=== PATIENT | female | born 1950 | race Caucasian/White ===

== ENCOUNTER 2017-07-21 21:43 | Emergency (ER) | payer SELFPAY ==
--- NOTE | 2017-07-21 21:53 | C.PDOC ---
History Of Present Illness Patient presents to the ER after she had a new milkshake at approximately 19:00- 20:00 and developed a runny nose, diffuse itching and swelling to eyelids, and a rash. Patient was initially SOB which prompted ER visit, currently speaking in complete sentences. Denies chest pain or vomiting. Time Seen by Provider: 07/21/17 21:53 Chief Complaint (Nursing): Allergic Reaction History Per: Patient History/Exam Limitations: no limitations Onset/Duration Of Symptoms: Hrs Current Symptoms Are (Timing): Still Present Context: Food Possible Cause: Food Associated Symptoms: Skin Rash, Swelling, Itching Home/EMS Treatment: None Severity: Mild Pain Scale Rating Of: 4 Recent travel outside of the [place]: No Past Medical History Reviewed: Historical Data, Nursing Documentation, Vital Signs Vital Signs: Last Vital Signs Temp 97.4 F L 07/22/17 01:59 Pulse 92 H 07/22/17 02:23 Resp 18 07/22/17 02:23 BP 137/55 L 07/22/17 02:23 Pulse Ox 95 07/22/17 02:23 - Medical History PMH: HTN Surgical History: No Surg Hx Family History: States: No Known Family Hx - Social History Hx Tobacco Use: No Hx Alcohol Use: No Hx Substance Use: No - Immunization History Hx Tetanus Toxoid Vaccination: No Hx Influenza Vaccination: Yes (08/13/14) Hx Pneumococcal Vaccination: Yes (08/13/15) Review Of Systems Cardiovascular: Negative for: Chest Pain Gastrointestinal: Negative for: Vomiting Skin: Positive for: Rash, Other (Swelling and itchiness to eyelids) Physical Exam - Physical Exam Appears: Non-toxic, No Acute Distress Skin: Warm, Dry, Rash (Mild diffuse urticarial) Head: Normacephalic Eye(s): bilateral: Normal Inspection, PERRL, EOMI, Other (Edematous eyelids, erythematous conjunctiva) Oral Mucosa: Moist Throat: Normal, No Erythema, No Other (Swelling) Chest: Symmetrical Cardiovascular: Rhythm Regular Respiratory: No Rales, No Rhonchi, No Wheezing Gastrointestinal/Abdominal: Soft, No Tenderness Neurological/Psych: Oriented x3 ED Course And Treatment O2 Sat by Pulse Oximetry: 95 Pulse Ox Interpretation: Normal Progress Note: IV fluids, benadryl, pepcid, and solumedrol administered. Reevaluation Time: 02:53 Reassessment Condition: Improved Critical Care Time - Critical Care Note Total Time (in mins): 30 Documented critical care: time excludes all time spent performing seperately billable procedures. Medical Decision Making Medical Decision Making: Upon provider reevaluation patient is feeling better, is medically stable, and requires no further treatment in the ED at this time. Patient will be discharged home with Rx for prednisone . Counseling was provided and all questions were answered regarding diagnosis and need for follow up with dr moody. There is agreement to discharge plan. Return if symptoms persist or worsen. Disposition Counseled Patient/Family Regarding: Studies Performed, Diagnosis, Need For Followup, Rx Given - Disposition Referrals: Pia Moody APN [Advanced Practice Nurse] - Disposition: HOME/ ROUTINE Disposition Time: 21:53 Condition: FAIR Additional Instructions: Please return if symptoms recur. also use benadryl, pepcid and claritin Prescriptions: Epinephrine [Epipen Jr 2-Ermisa] 0.15 mg IM ONCE PRN #1 auto.injct PRN Reason: Anaphylaxis predniSONE [predniSONE Tab] 20 mg PO DAILY #5 tab Instructions: General Allergic Reaction (ED), Urticaria (GEN) Forms: [employer] (Bhutanese) Print Language: PASHTO - Clinical Impression Clinical Impression: Allergic urticaria, Allergic reaction - Scribe Statement The provider has reviewed the documentation as recorded by the Scribe Jarrett Khoury All medical record entries made by the Scribe were at my direction and personally dictated by me. I have reviewed the chart and agree that the record accurately reflects my personal performance of the history, physical exam, medical decision making, and the department course for this patient. I have also personally directed, reviewed, and agree with the discharge instructions and disposition. Decision To Admit - . Patient Diagnosis: Allergic reaction
[2017-07-21] MEDS ORDERED: Lactated Ringer's 1,000 ML IV ONE (21:55)
[2017-07-21] MEDS ORDERED: DiphenhydrAMINE 50 mg/ml Inj IVP STA (21:55)
[2017-07-21] MEDS ORDERED: DiphenhydrAMINE 50 mg/ml Inj ONE (22:01)
[2017-07-22 02:02] VITALS: PULSE 92; TEMP 97.4
[2017-07-22 02:24] VITALS: BP 137/55; RESP 18; O2SAT 95
== END 2017-07-22 04:42 | disposition home or self-care (01) ==
LOC: C.ER 21:43
DX: L50.0 Allergic urticaria (principal)
CPT/HCPCS: 96374; 96375; 99285; J1200; J2930; J7120

== ENCOUNTER 2017-10-25 08:41 | Emergency (ER) | payer MEDICARE, OTHER ==
[2017-10-25 08:46] VITALS: RESP 20
--- NOTE | 2017-10-25 09:25 | C.PDOC ---
History Of Present Illness 67 year old female presents to the ED for evaluation of left buttock pain which began 8 days ago. Patient reports increased pain and redness. Denies fever, chills, discharge. Denies prior history of the same. L BUTTOCK PAIN X 8 DAYS. INCR PAIN, REDNESS. NO FEVER, DC, CHILLS. DENIES PRIOR HO SAME. EXAM MOD DIST NONTOXIC SKIN +ABSCESS UPPER L BUTTOCK ABSCESS W LOCAL TEND, NO DC. NO GROSS PERIRECTAL ABN. REMAINDER NEG Time Seen by Provider: 10/25/17 09:12 Chief Complaint (Nursing): Back Pain History Per: Patient History/Exam Limitations: no limitations Onset/Duration Of Symptoms: Days (8) Current Symptoms Are (Timing): Still Present Location Of Injury: Left: Buttock Quality Of Symptoms: Painful, Other (redness ) Additional History Per: Patient Past Medical History Reviewed: Historical Data, Nursing Documentation, Vital Signs Vital Signs: Last Vital Signs Temp 98.7 F 10/25/17 08:44 Pulse 73 10/25/17 08:44 Resp 20 10/25/17 08:44 BP 182/83 H 10/25/17 08:44 Pulse Ox 99 10/25/17 14:33 - Medical History PMH: HTN Denies: Anemia, Chronic Kidney Disease Surgical History: No Surg Hx Family History: States: Unknown Family Hx - Social History Hx Tobacco Use: No Hx Alcohol Use: No Hx Substance Use: No - Immunization History Hx Tetanus Toxoid Vaccination: No Hx Influenza Vaccination: Yes (08/13/14) Hx Pneumococcal Vaccination: Yes (08/13/15) Review Of Systems Constitutional: Negative for: Fever, Chills Skin: Positive for: Other (left buttock pain, with redness. no discharge ) Physical Exam - Physical Exam Appears: Non-toxic, Other (in moderate distress ) Skin: Other (abscess noted to upper left buttock with localized tenderness. No discharge. No gross perirectal abnormality) Head: Normacephalic Eye(s): bilateral: Normal Inspection Oral Mucosa: Moist Neck: Supple Chest: Symmetrical, No Deformity, No Tenderness Cardiovascular: Rhythm Regular, No Murmur Respiratory: Normal Breath Sounds, No Rales, No Rhonchi, No Wheezing Gastrointestinal/Abdominal: Soft, No Tenderness, No Guarding, No Rebound Extremity: Normal ROM, Capillary Refill (less than 2 seconds ) Neurological/Psych: Normal Speech, Normal Cognition ED Course And Treatment - Laboratory Results Result Diagrams: 10/25/17 10:00 10/25/17 10:00 O2 Sat by Pulse Oximetry: 99 (on RA) Pulse Ox Interpretation: Normal Progress Note: Bloodwork and CT A/P ordered and reviewed. Morphine IVP, Toradol IVP, and Zofran IVP administered. - Incision & Drainage Of Abscess Anesthesia: Lidocaine 1%, With Epi Prep Used: Betadine Procedure: Incised W/Scalpel Blade#: (11), Drained Pus, Irrigated Cavity W/ Saline, Probed To Break Up Loculations, Packed W/Gauze Progress - Re-Evaluation Re-evaluation Note: 10/25/17 12:12 D/W DR WILDE SURG RESIDENT WILL EVAL IN ER 10/25/17 14:00 PER SURG RESIDENT, NO NEED FOR I&D. WARM COMPRESSES ONLY. 10/25/17 14:[address] JIMENEZ OR SURG RESIDENTS S/P MULT CALLS SINCE 1400 - Data Reviewed Data Reviewed: Lab, Diagnostic imaging Disposition Counseled Patient/Family Regarding: Studies Performed, Diagnosis, Need For Followup, Rx Given - Disposition Referrals: [facility] [Provider Group] Disposition: HOME/ ROUTINE Disposition Time: 15:01 Condition: IMPROVED Additional Instructions: REGRESAR EN 2 MARQUEZ PARA EL CAMBIO DE EMBALAJE, EVALUACIN DE HERIDAS. Instructions: Skin Abscess Forms: [employer] (Libyan) Print Language: BENGALI - Clinical Impression Clinical Impression: Abscess - Scribe Statement The provider has reviewed the documentation as recorded by the Scribe (Antonella Casillas) Provider Attestation: All medical record entries made by the Scribe were at my direction and personally dictated by me. I have reviewed the chart and agree that the record accurately reflects my personal performance of the history, physical exam, medical decision making, and the department course for this patient. I have also personally directed, reviewed, and agree with the discharge instructions and disposition.
[2017-10-25 10:14] LABS: BASO # 0.1 K/uL (0.0-0.2); BASO % 0.6 % (0.0-2.0); EOS # 0.2 K/uL (0.0-0.7); EOS % 2.7 % (0.0-4.0); HEMOGLOBIN 11.2 g/dL (11.0-16.0); LYMPH # 2.3 K/uL (1.0-4.3); LYMPH % 27.8 % (20.0-40.0); MEAN CELL VOLUME 79.9 fL (81.0-99.0); MEAN CORPUSCULAR HEMOGLOBIN 26.7 pg (27.0-31.0); MEAN CORPUSCULAR HGB CONC 33.4 g/dL (33.0-37.0); MEAN PLATELET VOLUME 7.3 fL (7.2-11.7); MONO # 0.5 K/uL (0.0-0.8); MONO % 6.6 % (0.0-10.0); NEUT # 5.2 K/uL (1.8-7.0); NEUT % 62.3 % (50.0-75.0); RBC 4.21 Mil/uL (3.80-5.20); RED CELL DISTRIBUTION WIDTH 16.2 % (11.5-14.5); WHITE BLOOD COUNT 8.3 K/uL (4.8-10.8)
[2017-10-25 10:23] LABS: BLOOD UREA NITROGEN 18 mg/dL (7-17); CALCIUM 9.2 mg/dl (8.6-10.4); GFR AFRICAN-AMERICAN > 60; GFR NON-AFRICAN AMERICAN > 60
[2017-10-25] MEDS ORDERED: Iodixanol 320 MG/ML 100 ML BOTTLE IV ONE (10:47)
--- NOTE | 2017-10-25 11:31 | CT ---
CT pelvis History: Left buttock redness. Swelling. Comparison: None available. Technique: Multiple contiguous axial images were performed through the pelvis with the use of intravenous contrast. Subsequently, sagittal and coronal reformatted images were obtained. Findings: Subcutaneous calcifications noted within the bilateral gluteal regions suggestive for injection granulomatous changes. Small focal enhancing collection measuring 2.5 x 2.3 x 2.7 centimeter seen within the medial subcutaneous soft tissues of the left buttock overlying the distal sacrum/coccyx concerning for an abscess collection. This appears to abut the adjacent posterior distal sacrum and coccyx. Prominent reticulation and edema within the surrounding subcutaneous soft tissues. Urinary bladder is preserved. Heterogeneous uterus. Small bone islands in the right proximal femur. Prominent posterior disc osteophyte complex with disc space narrowing and endplate sclerosis at the L5-S1 level. Prominent left paravertebral osteophytosis. Severe left neural foraminal narrowing. Impression: 1. Small focal enhancing collection measuring 2.5 x 2.3 x 2.7 centimeter seen within the medial subcutaneous soft tissues of the left buttock overlying the distal sacrum/coccyx concerning for an abscess collection. This appears to abut the adjacent posterior distal sacrum and coccyx. Prominent reticulation and edema within the surrounding subcutaneous soft tissues. 2. Prominent posterior disc osteophyte complex with disc space narrowing and endplate sclerosis at the L5-S1 level. Prominent left paravertebral osteophytosis. Severe left neural foraminal narrowing. 3. Subcutaneous calcifications noted within the bilateral gluteal regions suggestive for injection granulomatous changes.
[2017-10-25 15:22] VITALS: BP 138/83; PULSE 78; TEMP 98.2; O2SAT 98
== END 2017-10-25 15:22 | disposition home or self-care (01) ==
LOC: C.ER 08:41
DX: L02.31 Cutaneous abscess of buttock (principal)
CPT/HCPCS: 10060; 72193; 80048; 85025; 96374; 96375; 99284; J1885; J2270; J2405; Q9967

== ENCOUNTER 2017-10-27 17:33 | Emergency (ER) | payer MEDICARE ==
[2017-10-27 18:08] VITALS: BP 131/75; PULSE 85; RESP 20; TEMP 98.4; O2SAT 97
--- NOTE | 2017-10-27 19:20 | C.PDOC ---
History Of Present Illness 67 year old female presents to the ED for a wound check. Patient underwent an Incision and Drainage to her left buttock on 10/25. Patient states she started herself on Ampicillin because she was not prescribed antibiotics. Patient denies fever, increased redness or pain, abdominal pain. 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 History/Exam Limitations: no limitations Onset/Duration Of Symptoms: Days Current Symptoms Are (Timing): Still Present Additional History Per: Patient Past Medical History Reviewed: Historical Data, Nursing Documentation, Vital Signs Vital Signs: Last Vital Signs Temp 98.4 F 10/27/17 18:03 Pulse 85 10/27/17 18:03 Resp 20 10/27/17 18:03 BP 131/75 10/27/17 18:03 Pulse Ox 97 10/27/17 21:31 - Medical History PMH: HTN Denies: Anemia, Chronic Kidney Disease Family History: States: Unknown Family Hx - Social History Hx Tobacco Use: No Hx Alcohol Use: No Hx Substance Use: No - Immunization History Hx Tetanus Toxoid Vaccination: No Hx Influenza Vaccination: Yes (08/13/14) Hx Pneumococcal Vaccination: Yes (08/13/15) Review Of Systems Constitutional: Negative for: Fever, Chills Skin: Positive for: Other (wound check ) Physical Exam - Physical Exam Appears: Non-toxic, No Acute Distress Skin: Warm, Dry, Other (0.5cm wound to left gluteal cleft ) Head: Atraumatic, Normacephalic Eye(s): bilateral: Normal Inspection, EOMI Oral Mucosa: Moist Neck: Normal ROM, Supple Chest: Symmetrical Respiratory: No Accessory Muscle Use Gastrointestinal/Abdominal: Soft, No Tenderness Extremity: Normal ROM, Capillary Refill (less than 2 seconds ) Neurological/Psych: Oriented x3, Normal Speech ED Course And Treatment O2 Sat by Pulse Oximetry: 97 (on RA) Pulse Ox Interpretation: Normal Progress Note: Packing removed. Area irrigated with NS. Patient refuses any additional packing. Wound was dressed with sterile dresssing. Patient stable for discharge and is advised to f/u with PMD within 2 days for further evaluation. Disposition - Disposition Disposition: HOME/ ROUTINE Disposition Time: 19:27 Condition: STABLE Additional Instructions: [place] o la clnica en 2-5 carson sin falta, para mas evaluacin. [place] los medicamentos celso indicado. Volver a la beni de emergencia en cualquier momento si los sntomas persisten o empeoran. 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 - Scribe Statement The provider has reviewed the documentation as recorded by the Scribe (Antonella Casillas) All medical record entries made by the Scribe were at my direction and personally dictated by me. I have reviewed the chart and agree that the record accurately reflects my personal performance of the history, physical exam, medical decision making, and the department course for this patient. I have also personally directed, reviewed, and agree with the discharge instructions and disposition.
[2017-10-27] MEDS ORDERED: Bacitracin 500 Units/gm Oint Foilpak UD ONE (19:23)
== END 2017-10-27 19:30 | disposition home or self-care (01) ==
LOC: C.ER 17:33
DX: L02.31 Cutaneous abscess of buttock (principal)

== ENCOUNTER 2018-09-01 07:01 | Emergency (ER) | payer MEDICARE ==
[2018-09-01 07:19] VITALS: O2SAT 97
--- NOTE | 2018-09-01 08:18 | C.PDOC ---
History Of Present Illness 68 y/o female presents to the ER complaining of itching to scalp and neck which has been present for the past 3 weeks. Patient states that she was evaluated by a brand analyst. Patient reports that the brand analyst told her that everything was fine and he did not give her any medications. She notes that she has generalized itching now.Denies having CP, SOB, throat swelling, fever, chills, and recent travel. Time Seen by Provider: 09/01/18 07:24 Chief Complaint (Nursing): Abnormal Skin Integrity History Per: Patient History/Exam Limitations: no limitations Onset/Duration Of Symptoms: Days Current Symptoms Are (Timing): Still Present Quality Of Symptoms: Itching Severity: Moderate Past Medical History Reviewed: Historical Data, Nursing Documentation, Vital Signs Vital Signs: Last Vital Signs Temp 99.1 F 09/01/18 07:16 Pulse 75 09/01/18 07:16 Resp 18 09/01/18 07:16 BP 146/65 09/01/18 07:16 Pulse Ox 97 09/01/18 07:16 - Medical History PMH: HTN Denies: Anemia, Chronic Kidney Disease Other Surgeries: Hx of surgeries Family History: States: No Known Family Hx - Social History Hx Tobacco Use: No Hx Alcohol Use: No Hx Substance Use: No - Immunization History Hx Tetanus Toxoid Vaccination: No Hx Influenza Vaccination: Yes Hx Pneumococcal Vaccination: No Review Of Systems Except As Marked, All Systems Reviewed And Found Negative. Constitutional: Negative for: Fever, Chills ENT: Negative for: Throat Swelling Cardiovascular: Negative for: Chest Pain Respiratory: Negative for: Shortness of Breath Skin: Positive for: Rash, Other (itching ) Physical Exam - Physical Exam Appears: Non-toxic, No Acute Distress Skin: Warm, Dry, Rash (scaly rash to scalp, no cellulitis, no urticaria, no eryt yeny) Head: Atraumatic, Normacephalic Eye(s): bilateral: Normal Inspection Nose: Normal Oral Mucosa: Moist Tongue: Normal Appearing, No Swelling, No Lesions Lips: Normal Appearing, No Swelling, No Lesions Throat: Normal, No Erythema, No Exudate Neck: Supple Chest: Symmetrical Cardiovascular: Rhythm Regular Respiratory: Normal Breath Sounds, No Rales, No Rhonchi, No Wheezing Gastrointestinal/Abdominal: Soft, No Tenderness, No Guarding, No Rebound Neurological/Psych: Oriented x3, Normal Speech ED Course And Treatment O2 Sat by Pulse Oximetry: 97 (RA) Pulse Ox Interpretation: Normal Medical Decision Making Medical Decision Making: Plan: --Benadryl PO Psoriasis vs. tinea capitis. Disposition - Disposition Referrals: Tonio Salazar MD [Non-Staff] - Esau Lorenz MD [Medical Doctor] - Mirtha Hoyos MD [Medical Doctor] - Disposition: HOME/ ROUTINE Disposition Time: 08:30 Condition: STABLE Additional Instructions: Follow up with the Church History Professor within 1-2 days. Return if worsened. 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 - Scribe Statement The provider has reviewed the documentation as recorded by the Tom Mahoney Provider Attestation All medical record entries made by the Tom were at my direction and personally dictated by me. I have reviewed the chart and agree that the record accurately reflects my personal performance of the history, physical exam, medical decision making, and the department course for this patient. I have also personally directed, reviewed, and agree with the discharge instructions and disposition.
[2018-09-01 09:16] VITALS: BP 148/75; PULSE 59; RESP 20; TEMP 98.6
== END 2018-09-01 09:06 | disposition home or self-care (01) ==
LOC: C.ER 07:01
DX: L40.9 Psoriasis, unspecified (principal); I10 Essential (primary) hypertension

== ENCOUNTER 2018-12-05 15:35 | Emergency (ER) | payer MEDICARE ==
[2018-12-05 16:02] VITALS: RESP 18
--- NOTE | 2018-12-05 16:15 | C.PDOC ---
Chief Complaint (Nursing): Abdominal Pain Past Medical History Vital Signs: Last Vital Signs Temp 98.4 F 12/05/18 15:58 Pulse 69 12/05/18 15:58 Resp 18 12/05/18 15:58 BP 182/78 H 12/05/18 15:58 Pulse Ox 96 12/05/18 15:58 - Medical History PMH: HTN Denies: Anemia, Chronic Kidney Disease Family History: States: Unknown Family Hx - Social History Hx Tobacco Use: No Hx Alcohol Use: No Hx Substance Use: No - Immunization History Hx Tetanus Toxoid Vaccination: No Hx Influenza Vaccination: Yes Hx Pneumococcal Vaccination: No ED Course And Treatment O2 Sat by Pulse Oximetry: 96 Disposition - Disposition
[2018-12-05 17:27] VITALS: BP 176/72; PULSE 74; TEMP 98.5; O2SAT 98
--- NOTE | 2018-12-05 18:17 | C.PDOC ---
History Of Present Illness 68 year old female patient presents to the ER complaining of pain to the rectal area for x10 days. Patient reports she was having a bowel movement when she felt the pain with minor bleeding. Pain and bleeding progressively became worse which prompted her to come to the ER. Patient denies abdominal pain and fever. Time Seen by Provider: 12/05/18 16:05 Chief Complaint (Nursing): Abdominal Pain History Per: Patient History/Exam Limitations: no limitations Onset/Duration Of Symptoms: Days (x10) Current Symptoms Are (Timing): Still Present Past Medical History Reviewed: Historical Data, Nursing Documentation, Vital Signs Vital Signs: Last Vital Signs Temp 98.5 F 12/05/18 17:27 Pulse 74 12/05/18 17:27 Resp 18 12/05/18 17:27 BP 176/72 H 12/05/18 17:27 Pulse Ox 98 12/05/18 17:27 - Medical History PMH: HTN Family History: States: Unknown Family Hx - Social History Hx Tobacco Use: No Hx Alcohol Use: No Hx Substance Use: No - Immunization History Hx Tetanus Toxoid Vaccination: No Hx Influenza Vaccination: Yes Hx Pneumococcal Vaccination: No Review Of Systems Except As Marked, All Systems Reviewed And Found Negative. Constitutional: Negative for: Fever Gastrointestinal: Negative for: Abdominal Pain Genitourinary: Positive for: Other (pain and minor bleeding to rectal area ) Physical Exam - Physical Exam Appears: Non-toxic, No Acute Distress Skin: Warm, Dry, No Rash Head: Atraumatic, Normacephalic Eye(s): bilateral: Normal Inspection Oral Mucosa: Moist Neck: Normal ROM Chest: Symmetrical Cardiovascular: Rhythm Regular, No Friction Rub, No Murmur Respiratory: Normal Breath Sounds Gastrointestinal/Abdominal: Soft, No Tenderness Rectal: Hemorrhoids (at 6 o'clock ) Back: No CVA Tenderness Extremity: Normal ROM (x4), No Swelling Neurological/Psych: Oriented x3, Normal Speech, Normal Motor Gait: Steady ED Course And Treatment O2 Sat by Pulse Oximetry: 98 (RA) Pulse Ox Interpretation: Normal Medical Decision Making Medical Decision Making: Plans: -- colace -- ibuprofen Disposition - Disposition Referrals: [facility] [Outside] Disposition: HOME/ ROUTINE Disposition Time: 17:00 Condition: GOOD Additional Instructions: Sit in a warm bath twice a day to relieve the pain. Do not strain when having a bowel movement as it will make it worse. Follow up with the medical doctor within 1-2 days. Return if worsened. 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 - Scribe Statement The provider has reviewed the documentation as recorded by the Tom Gomez Do All medical record entries made by the Scribe were at my direction and personally dictated by me. I have reviewed the chart and agree that the record a ccurately reflects my personal performance of the history, physical exam, medical decision making, and the department course for this patient. I have also personally directed, reviewed, and agree with the discharge instructions and disposition.
== END 2018-12-05 17:34 | disposition home or self-care (01) ==
LOC: C.ER 15:35
DX: K64.9 Unspecified hemorrhoids (principal)

== ENCOUNTER 2019-01-20 14:34 | Emergency (ER) | payer MEDICARE ==
[2019-01-20] MEDS ORDERED: Iohexol 240 (50 ml) PO STA (15:19)
[2019-01-20] MEDS ORDERED: Sodium Chloride 0.9% 1,000 ML IV ONE (15:19)
--- NOTE | 2019-01-20 15:27 | C.PDOC ---
History Of Present Illness Patient is a 68 year old female who presents to the ED c/o abdominal pain, constipation, and nausea x few days. Patient denies any fevers or chills. Time Seen by Provider: 01/20/19 15:11 Chief Complaint (Nursing): Abdominal Pain History Per: Patient History/Exam Limitations: no limitations Onset/Duration Of Symptoms: Days Current Symptoms Are (Timing): Still Present Quality Of Discomfort: "Pain" Associated Symptoms: Nausea, Constipation. denies: Fever, Chills Recent travel outside of the [place]: No Additional History Per: Patient Past Medical History Reviewed: Historical Data, Nursing Documentation, Vital Signs Vital Signs: Last Vital Signs Temp 98.9 F 01/20/19 14:39 Pulse 85 01/20/19 14:39 Resp 19 01/20/19 14:39 BP 143/78 01/20/19 14:39 Pulse Ox 95 01/20/19 14:39 Primary Care Provider: Non [facility] Provider, - Medical History PMH: HTN Denies: Anemia, Chronic Kidney Disease Surgical History: No Surg Hx Family History: States: Unknown Family Hx - Social History Hx Tobacco Use: No Hx Alcohol Use: No Hx Substance Use: No - Immunization History Hx Tetanus Toxoid Vaccination: No Hx Influenza Vaccination: Yes Hx Pneumococcal Vaccination: No Review Of Systems Constitutional: Negative for: Fever, Chills Gastrointestinal: Positive for: Nausea, Abdominal Pain, Constipation Physical Exam - Physical Exam Appears: Non-toxic, No Acute Distress Skin: Warm, Dry Head: Atraumatic, Normacephalic Eye(s): bilateral: Normal Inspection Oral Mucosa: Moist Neck: Normal ROM, Supple Chest: Symmetrical, No Deformity Cardiovascular: Rhythm Regular, No Murmur Respiratory: Normal Breath Sounds, No Rales, No Rhonchi, No Wheezing Gastrointestinal/Abdominal: Soft, Tenderness, Distention Neurological/Psych: Oriented x3, Normal Speech, Normal Cognition ED Course And Treatment - Laboratory Results Result Diagrams: 01/20/19 16:01 01/20/19 16:01 Lab Interpretation: Normal O2 Sat by Pulse Oximetry: 95 (on RA) Pulse Ox Interpretation: Normal - CT Scan/US No standard instances Other Rad Studies (CT/US): Read By Radiologist, Radiology Report Reviewed CT/US Interpretation: LOWER THORAX: No visible consolidation, pleural effusion, or pneumothorax. Partially imaged borderline cardiomegaly. Dense mitral annulus calcification. Small hiatal hernia/distal esophageal wall thickening. LIVER: Hypoattenuation of the liver compatible with hepatic steatosis. GALL BLADDER AND BILE DUCTS: Unremarkable. PANCREAS: Unremarkable. SPLEEN: Unremarkable. ADRENALS: Unremarkable. KIDNEYS AND URETERS: The kidneys enhance symmetrically. No hydronephrosis or obstructing renal calculus. Nonobstructing 5 mm right renal calculus. BLADDER: The urinary bladder appears unremarkable. REPRODUCTIVE: Uterus is present. APPENDIX: The appendix is not identified. No secondary signs of acute appendicitis. BOWEL: The stomach is nondistended. The bowel loops appear within normal limits of caliber without evidence of intestinal obstruction. PERITONEUM: No significant free fluid. No definite free air. LYMPH NODES: No bulky lymphadenopathy identified. VASCUL ATURE: No aortic aneurysm. Atherosclerotic calcifications of the aorta and branches. BONES: Mild degenerative changes. Vacuum disc phenomenon at L5-S1. OTHER FINDINGS: None. IMPRESSION: Partially imaged borderline cardiomegaly. Dense mitral annulus calcification. Small hiatal hernia/distal esophageal wall thickening. Hypoattenuation of the liver compatible with hepatic steatosis. Nonobstructing 5 mm right renal calculus. Progress Note: Treated with IVF NSS and zofran. On re-evaluation abdomen soft, in no distress Reassessment Condition: Improved Medical Decision Making Medical Decision Making: Plan: CAT A&P Labs Urine Culture UA IV Fluids Zofran 4mg IVP Disposition Counseled Patient/Family Regarding: Studies Performed, Diagnosis, Need For Follo wup - Disposition Disposition: HOME/ ROUTINE Disposition Time: 19:00 Condition: IMPROVED Additional Instructions: Tylenol or motrin as needed for pain Instructions: Acute Abdomen (Belly Pain), Adult (DC) Forms: Kopo Kopo (Romanian) - POA Present On Arrival: None - Clinical Impression Clinical Impression: Abdominal pain, Nausea - PA / DIRECTOR OF [employer]LEGI[employer]THLET[employer] / Resident Statement MD/DO has reviewed & agrees with the documentation as recorded. - Scribe Statement The provider has reviewed the documentation as recorded by the Tom Blanc All medical record entries made by the Brendaibyonatan were at my direction and personally dictated by me. I have reviewed the chart and agree that the record accurately reflects my personal performance of the history, physical exam, medical decision making, and the department course for this patient. I have also personally directed, reviewed, and agree with the discharge instructions and disposition.
[2019-01-20] MEDS ORDERED: Iohexol 240 (50 ml) ONE (15:32)
[2019-01-20] MEDS ORDERED: Sodium Chloride 0.9% 1,000 ML ONE (15:33)
[2019-01-20 16:11] LABS: BASO % 0.4 % (0.0-2.0); EOS # 0.2 K/uL (0.0-0.7); EOS % 2.6 % (0.0-4.0); HEMOGLOBIN 10.7 g/dL (11.0-16.0); LYMPH # 2.2 K/uL (1.0-4.3); LYMPH % 26.7 % (20.0-40.0); MEAN CELL VOLUME 81.6 fL (81.0-99.0); MEAN CORPUSCULAR HEMOGLOBIN 27.6 pg (27.0-31.0); MEAN CORPUSCULAR HGB CONC 33.8 g/dL (33.0-37.0); MEAN PLATELET VOLUME 7.2 fL (7.2-11.7); MONO # 0.6 K/uL (0.0-0.8); MONO % 7.1 % (0.0-10.0); NEUT # 5.1 K/uL (1.8-7.0); NEUT % 63.2 % (50.0-75.0); NRBC % 0.1 % (0.0-2.0); RBC 3.86 Mil/uL (3.80-5.20); RED CELL DISTRIBUTION WIDTH 15.2 % (11.5-14.5); WHITE BLOOD COUNT 8.1 K/uL (4.8-10.8)
[2019-01-20 16:24] LABS: ALB/GLOB RATIO 1.2 (1.0-2.1); ALBUMIN 4.4 g/dL (3.5-5.0); BLOOD UREA NITROGEN 18 mg/dL (7-17); CALCIUM 9.1 mg/dl (8.6-10.4); GFR NON-AFRICAN AMERICAN > 60
[2019-01-20 16:26] LABS: ALT/SGPT 22 U/L (9-52); AST/SGOT 34 U/L (14-36)
[2019-01-20 16:48] LABS: SQUAMOUS EPITHIAL 2 /hpf (0-5); URINE BACTERIA RARE (<OCC); URINE BILIRUBIN NEGATIVE (NEGATIVE); URINE BLOOD NEGATIVE (NEGATIVE); URINE CLARITY Hazy (Clear); URINE COLOR Yellow (YELLOW); URINE GLUCOSE (UA) NORMAL (Normal); URINE LEUKOCYTE ESTERASE 1+ Leu/uL (Negative); URINE PROTEIN NEGATIVE (NEGATIVE); URINE UROBILINOGEN NORMAL mg/dL (0.2-1.0)
[2019-01-20] MEDS ORDERED: Iodixanol 320 MG/ML 100 ML BOTTLE IV ONE (17:28)
--- NOTE | 2019-01-20 18:49 | CT ---
PROCEDURE: CT Abdomen and Pelvis with oral and IV contrast. HISTORY: pain COMPARISON: CT abdomen and pelvis with contrast performed 11/13/14, CT pelvis with contrast performed 10/25/17 TECHNIQUE: Contiguous axial images of the abdomen and pelvis. Oral and IV contrast was administered. Coronal and Sagittal reformats generated and reviewed. Contrast dose: 100 mL Visipaque 320 Radiation dose: Total exam DLP = 1014.22 mGy-cm. This CT exam was performed using one or more of the following dose reduction techniques: Automated exposure control, adjustment of the mA and/or kV according to patient size, and/or use of iterative reconstruction technique. FINDINGS: LOWER THORAX: No visible consolidation, pleural effusion, or pneumothorax. Partially imaged borderline cardiomegaly. Dense mitral annulus calcification. Small hiatal hernia/distal esophageal wall thickening. LIVER: Hypoattenuation of the liver compatible with hepatic steatosis. GALLBLADDER AND BILE DUCTS: Unremarkable. PANCREAS: Unremarkable. SPLEEN: Unremarkable. ADRENALS: Unremarkable. KIDNEYS AND URETERS: The kidneys enhance symmetrically. No hydronephrosis or obstructing renal calculus. Nonobstructing 5 mm right renal calculus. BLADDER: The urinary bladder appears unremarkable. REPRODUCTIVE: Uterus is present. APPENDIX: The appendix is not identified. No secondary signs of acute appendicitis. BOWEL: The stomach is nondistended. The bowel loops appear within normal limits of caliber without evidence of intestinal obstruction. PERITONEUM: No significant free fluid. No definite free air. LYMPH NODES: No bulky lymphadenopathy identified. VASCULATURE: No aortic aneurysm. Atherosclerotic calcifications of the aorta and branches. BONES: Mild degenerative changes. Vacuum disc phenomenon at L5-S1. OTHER FINDINGS: None. IMPRESSION: Partially imaged borderline cardiomegaly. Dense mitral annulus calcification. Small hiatal hernia/distal esophageal wall thickening. Hypoattenuation of the liver compatible with hepatic steatosis. Nonobstructing 5 mm right renal calculus. Additional incidental findings as above.
[2019-01-20 19:25] VITALS: BP 158/72; PULSE 69; RESP 20; TEMP 98.6; O2SAT 99
== END 2019-01-20 19:25 | disposition home or self-care (01) ==
LOC: C.ER 14:34
DX: R10.9 Unspecified abdominal pain (principal); R11.0 Nausea
CPT/HCPCS: 74177; 80053; 81001; 83605; 85025; 87086; 96361; 96374; 99284; J2405; J7030; Q9966; Q9967